=== PATIENT | female | born 1960 | race Caucasian/White ===

== ENCOUNTER 2020-08-09 17:27 | Emergency (ER) | payer OTHER ==
[2020-08-09 18:55] LABS: BASOPHIL 0.5 % (0-2); EOSINOPHIL 0.8 % (0-5); HCT 40.6 % (37.0-47.0); LYMPHOCYTE 38.7 % (15-48); MCH 33.7 pg (25.0-31.0); MCHC 34.5 g/dL (32.0-36.0); MCV 97.6 fL (78.0-100.0); MONOCYTE 6.1 % (0-12); MPV 10.6 fL (6.0-9.5); NEUTROPHIL 53.6 % (41-80); NRBC 0; PLT 243 K/uL (150-400); RBC 4.16 M/uL (4.20-5.40); RDW 11.7 % (11.5-14.0); WBC 10.3 K/uL (4.0-10.5)
[2020-08-09 19:12] LABS: ALBUMIN 3.7 g/dL (3.4-5.0); BILIRUBIN - TOTAL 0.3 mg/dL (0.2-1.0); BUN/CREAT RATIO (CALC) 32.1 RATIO; CREATININE 0.56 mg/dL (0.51-0.95); GLOBULIN (CALCULATION) 3.1 g/dL; TOTAL PROTEIN 6.8 g/dL (6.4-8.2)
[2020-08-09 19:21] LABS: PRO-BNP 272 pg/mL (<125)
[2020-08-09 19:23] LABS: POTASSIUM 3.7 mmol/L (3.5-5.1)
[2020-08-09] MEDS ORDERED: VENTOLIN HFA IN18 GM INH ×2 (20:11→20:12)
== END 2020-08-09 20:30 | disposition home or self-care (01) ==
LOC: FER 17:27
PROVIDERS: Emergency Medicine
DX: U07.1 COVID-19 (principal)
CPT/HCPCS: 36415; 71045; 80053; 83605; 83880; 84145; 84484; 85025; 85379; 87040; 93005